=== PATIENT | male | born 1960 | race Caucasian/White ===

== ENCOUNTER 2020-05-09 23:10 | Inpatient (IN) | payer MEDICAID, SELFPAY ==
[~2020-05-09] VITALS: Ht 165.1 cm; Wt 77.1 kg
[2020-05-09 23:10] VITALS: BP 126/70
[2020-05-10 00:12] LABS: BASOPHILS # (AUTO) 0.1 K/uL (0.00-0.22); BASOPHILS % (AUTO) 0.5 % (0.0-2.0); HEMATOCRIT 39.6 % (36-52); HEMOGLOBIN 12.9 g/dL (12.0-18.0); LYMPHOCYTES # (AUTO) 2.8 K/uL (2.0-11.5); LYMPHOCYTES % (AUTO) 16.4 % (20.5-51.1); MEAN CORPUSCULAR HEMOGLOBIN 28 pg (27-31); MEAN CORPUSCULAR HGB CONC 33 g/dL (33-37); MEAN CORPUSCULAR VOLUME 86.6 fL (80-94); MONOCYTES # (AUTO) 0.9 K/uL (0.8-1.0); MONOCYTES % (AUTO) 5.5 % (1.7-9.3); NEUTROPHILS # (AUTO) 13.2 K/uL (1.8-7.7); NEUTROPHILS % (AUTO) 77.6 % (42.2-75.2); PLATELET COUNT (AUTO) 404 K/uL (140-450); RED BLOOD CELL COUNT(AUTO) 4.57 MIL/uL (4.20-6.10); RED CELL DISTRIBUTION WIDTH 13.7 % (11.6-13.7); WHITE BLOOD COUNT (AUTO) 16.9 K/uL (4.8-10.8)
[2020-05-10 00:28] LABS: ANION GAP 14.3 (8-16); CARBON DIOXIDE 25.8 mmol/L (21-32); CREATININE 1.1 mg/dL (0.6-1.3); POTASSIUM 4.1 mmol/L (3.5-5.1)
[2020-05-10 00:35] LABS: ALBUMIN 2.5 g/dL (3.4-5.0); TOTAL BILIRUBIN 0.3 mg/dL (0.0-1.0)
[2020-05-10] MEDS ORDERED: LEVOFLOXACIN 750 MG/D5W PREMIX 150 ML IV ONE (00:35)
[2020-05-10] MEDS ORDERED: MORPHINE SULFATE 2 MG/ML SYR IVP PRN (01:15)
[2020-05-10] MEDS ORDERED: ACETAMINOPHEN 325 MG TAB PO PRN (01:15)
[2020-05-10] MEDS ORDERED: HYDROcodone/APAP 5/325 MG 1 TAB TAB PO PRN (01:15)
[2020-05-10] MEDS ORDERED: ONDANSETRON 4 MG/2 ML VIAL IM/IVP PRN (01:15)
[2020-05-10] MEDS ORDERED: DOCUSATE SODIUM 100 MG GELCAP PO PRN (01:15)
[2020-05-10] MEDS ORDERED: ENOXAPARIN 40 MG/0.4 ML SYR SUBQ ONE ×2 (01:25→05:41)
[2020-05-10] MEDS ORDERED: ALBUTEROL HFA MDI 90 MCG/ACTUATION 8 GM INH PRN (08:07)
[2020-05-10] MEDS ORDERED: ENOXAPARIN 40 MG/0.4 ML SYR SUBQ SCH (08:22)
[2020-05-10] MEDS ORDERED: AZITHROMYCIN 250 MG TAB PO SCH (11:03)
[2020-05-10] MEDS ORDERED: cefTRIAXone 1,000 MG VIAL ONE (11:46)
[2020-05-10] MEDS ORDERED: DEXTROSE 50% 50 ML SYR IVP PRN (14:30)
[2020-05-10] MEDS: BLOOD GLUCOSE MONITORING 1 DEV DEV FS SCH ×2 (16:50→21:01)
[2020-05-10] MEDS: ENOXAPARIN 80 MG/0.8 ML SYR SUBQ SCH (18:48)
[2020-05-10 20:30] VITALS: BP 119/61
[2020-05-10] MEDS: INSULIN LISPRO SLIDING SCALE 100 UNITS/ML VIAL SUBQ PRN (21:02)
[2020-05-10 23:23] VITALS: BP 119/61
[2020-05-11] VITALS: BP 96/66
[2020-05-11 04:00] VITALS: BP 105/59
[2020-05-11] MEDS: ENOXAPARIN 80 MG/0.8 ML SYR SUBQ SCH ×2 (05:33→17:21)
[2020-05-11 06:16] LABS: BASOPHILS % (AUTO) 0.3 % (0.0-2.0); HEMATOCRIT 37.4 % (36-52); HEMOGLOBIN 12.4 g/dL (12.0-18.0); LYMPHOCYTES # (AUTO) 2.4 K/uL (2.0-11.5); LYMPHOCYTES % (AUTO) 18.5 % (20.5-51.1); MEAN CORPUSCULAR HEMOGLOBIN 29 pg (27-31); MEAN CORPUSCULAR HGB CONC 33 g/dL (33-37); MEAN CORPUSCULAR VOLUME 86.2 fL (80-94); MONOCYTES # (AUTO) 0.6 K/uL (0.8-1.0); MONOCYTES % (AUTO) 4.5 % (1.7-9.3); NEUTROPHILS % (AUTO) 76.7 % (42.2-75.2); PLATELET COUNT (AUTO) 409 K/uL (140-450); RED BLOOD CELL COUNT(AUTO) 4.34 MIL/uL (4.20-6.10); RED CELL DISTRIBUTION WIDTH 13.5 % (11.6-13.7)
[2020-05-11] MEDS: BLOOD GLUCOSE MONITORING 1 DEV DEV FS SCH ×4 (06:46→21:00)
[2020-05-11 07:06] LABS: ANION GAP 13.6 (8-16); CARBON DIOXIDE 25.8 mmol/L (21-32); CREATININE 0.9 mg/dL (0.6-1.3); POTASSIUM 4.4 mmol/L (3.5-5.1)
[2020-05-11 08:00] VITALS: BP 110/68
[2020-05-11] MEDS: AZITHROMYCIN 250 MG TAB PO SCH (09:01)
[2020-05-11] MEDS: PANTOPRAZOLE 40 MG INJ VIAL IVP SCH (09:02)
[2020-05-11 12:00] VITALS: BP 106/64
[2020-05-11 16:00] VITALS: BP 99/54
[2020-05-11] MEDS: INSULIN LISPRO SLIDING SCALE 100 UNITS/ML VIAL SUBQ PRN (17:20)
[2020-05-11 20:25] VITALS: BP 125/67
[2020-05-12] VITALS: BP 107/45
[2020-05-12] MEDS: INSULIN LISPRO SLIDING SCALE 100 UNITS/ML VIAL SUBQ PRN ×4 (00:08→20:50)
[2020-05-12] MEDS: guaiFENesin 20 MG/ML UDC PO PRN ×2 (01:46→23:13)
[2020-05-12] MEDS: ENOXAPARIN 80 MG/0.8 ML SYR SUBQ SCH ×2 (05:39→18:25)
[2020-05-12 05:40] VITALS: BP 99/55
[2020-05-12] MEDS: BLOOD GLUCOSE MONITORING 1 DEV DEV FS SCH ×4 (05:58→20:56)
[2020-05-12 06:01] LABS: BASOPHILS % (AUTO) 0.2 % (0.0-2.0); EOSINOPHILS % (AUTO) 0.3 % (0.0-4.0); HEMATOCRIT 37.5 % (36-52); HEMOGLOBIN 12.5 g/dL (12.0-18.0); LYMPHOCYTES # (AUTO) 2.4 K/uL (2.0-11.5); LYMPHOCYTES % (AUTO) 18.2 % (20.5-51.1); MEAN CORPUSCULAR HEMOGLOBIN 29 pg (27-31); MEAN CORPUSCULAR HGB CONC 33 g/dL (33-37); MEAN CORPUSCULAR VOLUME 86.1 fL (80-94); MONOCYTES # (AUTO) 0.5 K/uL (0.8-1.0); MONOCYTES % (AUTO) 4.1 % (1.7-9.3); NEUTROPHILS % (AUTO) 77.2 % (42.2-75.2); PLATELET COUNT (AUTO) 458 K/uL (140-450); RED BLOOD CELL COUNT(AUTO) 4.36 MIL/uL (4.20-6.10); RED CELL DISTRIBUTION WIDTH 12.8 % (11.6-13.7)
[2020-05-12 07:40] LABS: ALBUMIN 2.2 g/dL (3.4-5.0); ANION GAP 9.9 (8-16); CARBON DIOXIDE 26.6 mmol/L (21-32); POTASSIUM 4.5 mmol/L (3.5-5.1); TOTAL BILIRUBIN 0.4 mg/dL (0.0-1.0)
[2020-05-12 08:00] VITALS: BP 91/57
[2020-05-12] MEDS: AZITHROMYCIN 250 MG TAB PO SCH (10:00)
[2020-05-12] MEDS: PANTOPRAZOLE 40 MG INJ VIAL IVP SCH (10:00)
[2020-05-12 12:00] VITALS: BP 111/62
[2020-05-12 16:00] VITALS: BP 105/60
[2020-05-12 22:00] VITALS: BP 105/61
[2020-05-13] VITALS: BP 99/58
[2020-05-13] MEDS: guaiFENesin 20 MG/ML UDC PO PRN ×3 (04:45→20:17)
[2020-05-13] MEDS: ENOXAPARIN 80 MG/0.8 ML SYR SUBQ SCH ×2 (05:55→17:56)
[2020-05-13 06:39] VITALS: BP 105/60
[2020-05-13 06:55] LABS: BASOPHILS # (AUTO) 0.1 K/uL (0.00-0.22); BASOPHILS % (AUTO) 0.9 % (0.0-2.0); EOSINOPHILS # (AUTO) 0.1 K/uL (0-0.4); EOSINOPHILS % (AUTO) 0.9 % (0.0-4.0); HEMATOCRIT 37.2 % (36-52); HEMOGLOBIN 12.5 g/dL (12.0-18.0); LYMPHOCYTES # (AUTO) 2.6 K/uL (2.0-11.5); LYMPHOCYTES % (AUTO) 16.5 % (20.5-51.1); MEAN CORPUSCULAR HEMOGLOBIN 29 pg (27-31); MEAN CORPUSCULAR HGB CONC 34 g/dL (33-37); MONOCYTES # (AUTO) 0.6 K/uL (0.8-1.0); MONOCYTES % (AUTO) 3.6 % (1.7-9.3); NEUTROPHILS # (AUTO) 12.1 K/uL (1.8-7.7); NEUTROPHILS % (AUTO) 78.1 % (42.2-75.2); PLATELET COUNT (AUTO) 547 K/uL (140-450); RED BLOOD CELL COUNT(AUTO) 4.33 MIL/uL (4.20-6.10); RED CELL DISTRIBUTION WIDTH 13.2 % (11.6-13.7); WHITE BLOOD COUNT (AUTO) 15.6 K/uL (4.8-10.8)
[2020-05-13] MEDS: BLOOD GLUCOSE MONITORING 1 DEV DEV FS SCH ×4 (07:29→20:21)
[2020-05-13 07:43] LABS: ANION GAP 12.9 (8-16); CARBON DIOXIDE 27.3 mmol/L (21-32); CREATININE 0.9 mg/dL (0.6-1.3); POTASSIUM 4.2 mmol/L (3.5-5.1)
[2020-05-13 08:00] VITALS: BP 100/62
[2020-05-13] MEDS: AZITHROMYCIN 250 MG TAB PO SCH (08:14)
[2020-05-13] MEDS: PANTOPRAZOLE 40 MG INJ VIAL IVP SCH (08:15)
[2020-05-13 12:00] VITALS: BP 104/63
[2020-05-13] MEDS: INSULIN LISPRO SLIDING SCALE 100 UNITS/ML VIAL SUBQ PRN ×2 (12:16→20:29)
[2020-05-13 16:00] VITALS: BP 115/76
[2020-05-13 20:00] VITALS: BP 121/61
[2020-05-14] VITALS: BP 97/53
[2020-05-14] MEDS: guaiFENesin 20 MG/ML UDC PO PRN ×3 (02:30→16:27)
[2020-05-14 04:00] VITALS: BP 98/42
[2020-05-14] MEDS ORDERED: ENOXAPARIN 40 MG/0.4 ML SYR SUBQ ONE (05:29)
[2020-05-14] MEDS: ENOXAPARIN 80 MG/0.8 ML SYR SUBQ SCH ×2 (05:37→19:13)
[2020-05-14] MEDS: BLOOD GLUCOSE MONITORING 1 DEV DEV FS SCH ×4 (05:43→21:51)
[2020-05-14 08:00] VITALS: BP 106/73
[2020-05-14] MEDS: AZITHROMYCIN 250 MG TAB PO SCH (09:28)
[2020-05-14] MEDS: PANTOPRAZOLE 40 MG INJ VIAL IVP SCH (09:28)
[2020-05-14 12:00] VITALS: BP 110/68
[2020-05-14 12:26] LABS: CARBON DIOXIDE 25.2 mmol/L (21-32); CREATININE 0.9 mg/dL (0.6-1.3); POTASSIUM 4.2 mmol/L (3.5-5.1)
[2020-05-14 12:37] LABS: BASOPHILS # (AUTO) 0.1 K/uL (0.00-0.22); EOSINOPHILS # (AUTO) 0.2 K/uL (0-0.4); EOSINOPHILS % (AUTO) 1.7 % (0.0-4.0); HEMATOCRIT 37.5 % (36-52); HEMOGLOBIN 12.5 g/dL (12.0-18.0); LYMPHOCYTES # (AUTO) 2.1 K/uL (2.0-11.5); LYMPHOCYTES % (AUTO) 16.3 % (20.5-51.1); MEAN CORPUSCULAR HEMOGLOBIN 29 pg (27-31); MEAN CORPUSCULAR HGB CONC 33 g/dL (33-37); MEAN CORPUSCULAR VOLUME 86.3 fL (80-94); MONOCYTES # (AUTO) 0.5 K/uL (0.8-1.0); MONOCYTES % (AUTO) 4.2 % (1.7-9.3); NEUTROPHILS # (AUTO) 9.7 K/uL (1.8-7.7); NEUTROPHILS % (AUTO) 76.8 % (42.2-75.2); PLATELET COUNT (AUTO) 554 K/uL (140-450); RED BLOOD CELL COUNT(AUTO) 4.35 MIL/uL (4.20-6.10); RED CELL DISTRIBUTION WIDTH 13.1 % (11.6-13.7); WHITE BLOOD COUNT (AUTO) 12.6 K/uL (4.8-10.8)
[2020-05-14] MEDS ORDERED: FUROSEMIDE 20 MG/2 ML VIAL IVP SCH (13:00)
[2020-05-14 16:00] VITALS: BP 121/79
[2020-05-14 20:00] VITALS: BP 98/49
[2020-05-15] VITALS: BP 100/58
[2020-05-15] MEDS: INSULIN LISPRO SLIDING SCALE 100 UNITS/ML VIAL SUBQ PRN ×2 (00:10→21:22)
[2020-05-15] MEDS: guaiFENesin 20 MG/ML UDC PO PRN ×3 (00:16→21:21)
[2020-05-15 04:00] VITALS: BP 95/53
[2020-05-15] MEDS ORDERED: ENOXAPARIN 100 MG/ML SYR SUBQ ONE (05:44)
[2020-05-15] MEDS: ENOXAPARIN 80 MG/0.8 ML SYR SUBQ SCH ×2 (05:48→18:00)
[2020-05-15] MEDS: BLOOD GLUCOSE MONITORING 1 DEV DEV FS SCH ×4 (05:57→21:22)
[2020-05-15 07:11] LABS: BASOPHILS % (AUTO) 0.4 % (0.0-2.0); EOSINOPHILS # (AUTO) 0.1 K/uL (0-0.4); EOSINOPHILS % (AUTO) 0.7 % (0.0-4.0); HEMATOCRIT 37.9 % (36-52); HEMOGLOBIN 12.5 g/dL (12.0-18.0); LYMPHOCYTES # (AUTO) 2.7 K/uL (2.0-11.5); LYMPHOCYTES % (AUTO) 20.3 % (20.5-51.1); MEAN CORPUSCULAR HEMOGLOBIN 28 pg (27-31); MEAN CORPUSCULAR HGB CONC 33 g/dL (33-37); MEAN CORPUSCULAR VOLUME 86.3 fL (80-94); MONOCYTES # (AUTO) 0.8 K/uL (0.8-1.0); MONOCYTES % (AUTO) 5.9 % (1.7-9.3); NEUTROPHILS # (AUTO) 9.7 K/uL (1.8-7.7); NEUTROPHILS % (AUTO) 72.7 % (42.2-75.2); PLATELET COUNT (AUTO) 614 K/uL (140-450); RED BLOOD CELL COUNT(AUTO) 4.39 MIL/uL (4.20-6.10); RED CELL DISTRIBUTION WIDTH 13.1 % (11.6-13.7); WHITE BLOOD COUNT (AUTO) 13.3 K/uL (4.8-10.8)
[2020-05-15 07:33] LABS: ANION GAP 8.3 (8-16); CARBON DIOXIDE 28.8 mmol/L (21-32); CREATININE 0.9 mg/dL (0.6-1.3); POTASSIUM 4.1 mmol/L (3.5-5.1)
[2020-05-15 08:00] VITALS: BP 99/51
[2020-05-15] MEDS: PANTOPRAZOLE 40 MG INJ VIAL IVP SCH (09:48)
[2020-05-15 12:00] VITALS: BP 101/62
[2020-05-15] MEDS: PIPERACILLIN/TAZOBACTAM 3.375 GM in DEXTROSE 5% 50 ML IV SCH ×3 (12:31→23:36)
[2020-05-15 19:03] VITALS: BP 90/52
[2020-05-16] VITALS: BP 96/52
[2020-05-16 04:00] VITALS: BP 107/64
[2020-05-16] MEDS: ENOXAPARIN 80 MG/0.8 ML SYR SUBQ SCH ×2 (05:48→17:09)
[2020-05-16] MEDS: PIPERACILLIN/TAZOBACTAM 3.375 GM in DEXTROSE 5% 50 ML IV SCH ×3 (05:51→17:09)
[2020-05-16] MEDS: BLOOD GLUCOSE MONITORING 1 DEV DEV FS SCH ×4 (05:57→20:54)
[2020-05-16 06:41] LABS: ANION GAP 8.9 (8-16); CARBON DIOXIDE 30.3 mmol/L (21-32); CREATININE 0.9 mg/dL (0.6-1.3); POTASSIUM 4.2 mmol/L (3.5-5.1)
[2020-05-16 07:01] LABS: BASOPHILS % (AUTO) 0.4 % (0.0-2.0); EOSINOPHILS # (AUTO) 0.1 K/uL (0-0.4); EOSINOPHILS % (AUTO) 0.5 % (0.0-4.0); HEMATOCRIT 36.9 % (36-52); HEMOGLOBIN 12.2 g/dL (12.0-18.0); LYMPHOCYTES # (AUTO) 2.5 K/uL (2.0-11.5); LYMPHOCYTES % (AUTO) 18.9 % (20.5-51.1); MEAN CORPUSCULAR HEMOGLOBIN 29 pg (27-31); MEAN CORPUSCULAR HGB CONC 33 g/dL (33-37); MEAN CORPUSCULAR VOLUME 86.7 fL (80-94); MONOCYTES # (AUTO) 1.1 K/uL (0.8-1.0); MONOCYTES % (AUTO) 8.8 % (1.7-9.3); NEUTROPHILS # (AUTO) 9.4 K/uL (1.8-7.7); NEUTROPHILS % (AUTO) 71.4 % (42.2-75.2); PLATELET COUNT (AUTO) 612 K/uL (140-450); RED BLOOD CELL COUNT(AUTO) 4.25 MIL/uL (4.20-6.10); RED CELL DISTRIBUTION WIDTH 13.3 % (11.6-13.7); WHITE BLOOD COUNT (AUTO) 13.1 K/uL (4.8-10.8)
[2020-05-16 08:00] VITALS: BP 107/64
[2020-05-16] MEDS: PANTOPRAZOLE 40 MG INJ VIAL IVP SCH (09:29)
[2020-05-16 12:00] VITALS: BP 99/55
[2020-05-16] MEDS: INSULIN LISPRO SLIDING SCALE 100 UNITS/ML VIAL SUBQ PRN ×3 (13:01→20:55)
[2020-05-16] MEDS ORDERED: FUROSEMIDE 20 MG/2 ML VIAL IVP SCH (13:10)
[2020-05-16 16:00] VITALS: BP 95/59
[2020-05-16 20:00] VITALS: BP 94/58
[2020-05-17] MEDS: PIPERACILLIN/TAZOBACTAM 3.375 GM in DEXTROSE 5% 50 ML IV SCH ×4 (00:17→17:55)
[2020-05-17 04:00] VITALS: BP 94/58
[2020-05-17] MEDS: ENOXAPARIN 80 MG/0.8 ML SYR SUBQ SCH ×2 (06:00→17:57)
[2020-05-17] MEDS: BLOOD GLUCOSE MONITORING 1 DEV DEV FS SCH ×4 (06:34→21:32)
[2020-05-17] MEDS: INSULIN LISPRO SLIDING SCALE 100 UNITS/ML VIAL SUBQ PRN ×3 (06:35→21:32)
[2020-05-17 08:00] VITALS: BP 90/59
[2020-05-17] MEDS: PANTOPRAZOLE 40 MG INJ VIAL IVP SCH (08:57)
[2020-05-17 09:28] LABS: HEMATOCRIT 34.8 % (36-52); HEMOGLOBIN 11.5 g/dL (12.0-18.0); MEAN CORPUSCULAR HEMOGLOBIN 29 pg (27-31); MEAN CORPUSCULAR HGB CONC 33 g/dL (33-37); MEAN CORPUSCULAR VOLUME 86.2 fL (80-94); PLATELET COUNT (AUTO) 592 K/uL (140-450); RED BLOOD CELL COUNT(AUTO) 4.04 MIL/uL (4.20-6.10); WHITE BLOOD COUNT (AUTO) 13.5 K/uL (4.8-10.8)
[2020-05-17 09:29] LABS: CARBON DIOXIDE 32.5 mmol/L (21-32); POTASSIUM 3.5 mmol/L (3.5-5.1)
[2020-05-17 16:00] VITALS: BP 95/58
[2020-05-17 16:35] LABS: LYMPHOCYTES % (MANUAL) 18 % (20-46); METAMYELOCYTES % 1 % (0-0); MONOCYTES % (MANUAL) 10 % (5-12); MYELOCYTES % 1 % (0-0)
[2020-05-17 20:00] VITALS: BP 95/50
[2020-05-18] MEDS: PIPERACILLIN/TAZOBACTAM 3.375 GM in DEXTROSE 5% 50 ML IV SCH ×5 (00:40→23:54)
[2020-05-18 04:00] VITALS: BP 97/53
[2020-05-18] MEDS: ENOXAPARIN 80 MG/0.8 ML SYR SUBQ SCH ×2 (05:33→17:32)
[2020-05-18] MEDS: BLOOD GLUCOSE MONITORING 1 DEV DEV FS SCH ×4 (06:58→21:34)
[2020-05-18] MEDS: INSULIN LISPRO SLIDING SCALE 100 UNITS/ML VIAL SUBQ PRN ×2 (06:59→21:35)
[2020-05-18] MEDS: PANTOPRAZOLE 40 MG INJ VIAL IVP SCH (08:24)
[2020-05-18 16:00] VITALS: BP 103/65
[2020-05-18 20:00] VITALS: BP 107/58
[2020-05-19 04:00] VITALS: BP 117/67
[2020-05-19] MEDS: PIPERACILLIN/TAZOBACTAM 3.375 GM in DEXTROSE 5% 50 ML IV SCH ×3 (05:54→17:09)
[2020-05-19] MEDS: ENOXAPARIN 80 MG/0.8 ML SYR SUBQ SCH ×2 (05:58→17:50)
[2020-05-19] MEDS: BLOOD GLUCOSE MONITORING 1 DEV DEV FS SCH ×4 (06:46→21:13)
[2020-05-19 08:00] VITALS: BP 109/68
[2020-05-19] MEDS: PANTOPRAZOLE 40 MG INJ VIAL IVP SCH (08:31)
[2020-05-19] MEDS: INSULIN LISPRO SLIDING SCALE 100 UNITS/ML VIAL SUBQ PRN ×2 (12:51→21:14)
[2020-05-19 16:00] VITALS: BP 104/65
[2020-05-19 20:00] VITALS: BP 106/66
[2020-05-20] MEDS: PIPERACILLIN/TAZOBACTAM 3.375 GM in DEXTROSE 5% 50 ML IV SCH ×5 (01:00→23:56)
[2020-05-20 04:00] VITALS: BP 108/74
[2020-05-20] MEDS: ENOXAPARIN 80 MG/0.8 ML SYR SUBQ SCH ×2 (05:49→18:27)
[2020-05-20] MEDS: BLOOD GLUCOSE MONITORING 1 DEV DEV FS SCH ×4 (06:24→21:26)
[2020-05-20 08:36] LABS: BASOPHILS # (AUTO) 0.1 K/uL (0.00-0.22); BASOPHILS % (AUTO) 0.6 % (0.0-2.0); EOSINOPHILS # (AUTO) 0.1 K/uL (0-0.4); EOSINOPHILS % (AUTO) 0.9 % (0.0-4.0); HEMATOCRIT 35.8 % (36-52); HEMOGLOBIN 11.8 g/dL (12.0-18.0); LYMPHOCYTES # (AUTO) 3.6 K/uL (2.0-11.5); LYMPHOCYTES % (AUTO) 27.8 % (20.5-51.1); MEAN CORPUSCULAR HEMOGLOBIN 28 pg (27-31); MEAN CORPUSCULAR HGB CONC 33 g/dL (33-37); MEAN CORPUSCULAR VOLUME 86.6 fL (80-94); MONOCYTES # (AUTO) 1.5 K/uL (0.8-1.0); MONOCYTES % (AUTO) 11.8 % (1.7-9.3); NEUTROPHILS # (AUTO) 7.6 K/uL (1.8-7.7); NEUTROPHILS % (AUTO) 58.9 % (42.2-75.2); PLATELET COUNT (AUTO) 524 K/uL (140-450); RED BLOOD CELL COUNT(AUTO) 4.14 MIL/uL (4.20-6.10); RED CELL DISTRIBUTION WIDTH 13.3 % (11.6-13.7); WHITE BLOOD COUNT (AUTO) 12.8 K/uL (4.8-10.8)
[2020-05-20 09:28] LABS: ALBUMIN 2.4 g/dL (3.4-5.0); ANION GAP 9.1 (8-16); CREATININE 0.9 mg/dL (0.6-1.3); MAGNESIUM 2.1 mg/dL (1.8-2.4); PHOSPHORUS 4.3 mg/dL (2.5-4.9); POTASSIUM 4.1 mmol/L (3.5-5.1); TOTAL BILIRUBIN 0.2 mg/dL (0.0-1.0)
[2020-05-20] MEDS: PANTOPRAZOLE 40 MG INJ VIAL IVP SCH (10:04)
[2020-05-20] MEDS: INSULIN LISPRO SLIDING SCALE 100 UNITS/ML VIAL SUBQ PRN ×3 (11:32→21:27)
[2020-05-20 16:00] VITALS: BP 130/46
[2020-05-20 20:00] VITALS: BP 111/75
[2020-05-21 04:00] VITALS: BP 108/69
[2020-05-21] MEDS: PIPERACILLIN/TAZOBACTAM 3.375 GM in DEXTROSE 5% 50 ML IV SCH ×3 (05:48→18:22)
[2020-05-21] MEDS: ENOXAPARIN 80 MG/0.8 ML SYR SUBQ SCH ×2 (05:56→18:24)
[2020-05-21] MEDS: BLOOD GLUCOSE MONITORING 1 DEV DEV FS SCH ×4 (05:58→20:42)
[2020-05-21 06:50] LABS: BASOPHILS # (AUTO) 0.1 K/uL (0.00-0.22); BASOPHILS % (AUTO) 0.6 % (0.0-2.0); EOSINOPHILS # (AUTO) 0.1 K/uL (0-0.4); EOSINOPHILS % (AUTO) 0.5 % (0.0-4.0); HEMOGLOBIN 12.5 g/dL (12.0-18.0); LYMPHOCYTES # (AUTO) 4.4 K/uL (2.0-11.5); LYMPHOCYTES % (AUTO) 30.3 % (20.5-51.1); MEAN CORPUSCULAR HEMOGLOBIN 29 pg (27-31); MEAN CORPUSCULAR HGB CONC 33 g/dL (33-37); MEAN CORPUSCULAR VOLUME 86.6 fL (80-94); MONOCYTES % (AUTO) 7.2 % (1.7-9.3); NEUTROPHILS % (AUTO) 61.4 % (42.2-75.2); PLATELET COUNT (AUTO) 547 K/uL (140-450); RED BLOOD CELL COUNT(AUTO) 4.38 MIL/uL (4.20-6.10); RED CELL DISTRIBUTION WIDTH 13.4 % (11.6-13.7); WHITE BLOOD COUNT (AUTO) 14.6 K/uL (4.8-10.8)
[2020-05-21 07:26] LABS: ANION GAP 12.5 (8-16); CARBON DIOXIDE 28.2 mmol/L (21-32); CREATININE 1.1 mg/dL (0.6-1.3); POTASSIUM 3.7 mmol/L (3.5-5.1)
[2020-05-21 07:51] LABS: PHOSPHORUS 4.4 mg/dL (2.5-4.9)
[2020-05-21] MEDS: PANTOPRAZOLE 40 MG INJ VIAL IVP SCH (08:45)
[2020-05-21 16:00] VITALS: BP 97/60
[2020-05-21 20:00] VITALS: BP 100/58
[2020-05-21] MEDS: INSULIN LISPRO SLIDING SCALE 100 UNITS/ML VIAL SUBQ PRN (20:42)
[2020-05-22] MEDS: PIPERACILLIN/TAZOBACTAM 3.375 GM in DEXTROSE 5% 50 ML IV SCH ×4 (00:08→17:28)
[2020-05-22 04:00] VITALS: BP 105/66
[2020-05-22] MEDS: ENOXAPARIN 80 MG/0.8 ML SYR SUBQ SCH ×2 (05:29→17:32)
[2020-05-22] MEDS: BLOOD GLUCOSE MONITORING 1 DEV DEV FS SCH ×4 (06:36→20:03)
[2020-05-22 06:54] LABS: BASOPHILS # (AUTO) 0.1 K/uL (0.00-0.22); EOSINOPHILS # (AUTO) 0.3 K/uL (0-0.4); EOSINOPHILS % (AUTO) 2.5 % (0.0-4.0); HEMATOCRIT 36.4 % (36-52); HEMOGLOBIN 12.1 g/dL (12.0-18.0); LYMPHOCYTES % (AUTO) 39.4 % (20.5-51.1); MEAN CORPUSCULAR HEMOGLOBIN 29 pg (27-31); MEAN CORPUSCULAR HGB CONC 33 g/dL (33-37); MEAN CORPUSCULAR VOLUME 86.6 fL (80-94); MONOCYTES # (AUTO) 1.2 K/uL (0.8-1.0); MONOCYTES % (AUTO) 9.8 % (1.7-9.3); NEUTROPHILS # (AUTO) 5.9 K/uL (1.8-7.7); NEUTROPHILS % (AUTO) 47.3 % (42.2-75.2); PLATELET COUNT (AUTO) 451 K/uL (140-450); RED BLOOD CELL COUNT(AUTO) 4.21 MIL/uL (4.20-6.10); RED CELL DISTRIBUTION WIDTH 13.3 % (11.6-13.7); WHITE BLOOD COUNT (AUTO) 12.6 K/uL (4.8-10.8)
[2020-05-22 07:09] LABS: ANION GAP 10.2 (8-16); CARBON DIOXIDE 29.7 mmol/L (21-32); CREATININE 1.1 mg/dL (0.6-1.3); POTASSIUM 3.9 mmol/L (3.5-5.1)
[2020-05-22] MEDS: PANTOPRAZOLE 40 MG INJ VIAL IVP SCH (08:10)
[2020-05-22] MEDS ORDERED: ASPI-1205 PO (14:54)
[2020-05-22] MEDS ORDERED: METF500T PO (14:54)
[2020-05-22] MEDS ORDERED: AMOX-999 PO (14:54)
[2020-05-22 16:00] VITALS: BP 101/55
[2020-05-22 20:00] VITALS: BP 103/62
[2020-05-23] MEDS: PIPERACILLIN/TAZOBACTAM 3.375 GM in DEXTROSE 5% 50 ML IV SCH (00:12)
[2020-05-23 04:00] VITALS: BP 98/56
[2020-05-23] MEDS: ENOXAPARIN 80 MG/0.8 ML SYR SUBQ SCH (05:52)
[2020-05-23] MEDS: BLOOD GLUCOSE MONITORING 1 DEV DEV FS SCH (07:30)
[2020-05-23 08:00] VITALS: BP 108/62
[2020-05-23] MEDS: PANTOPRAZOLE 40 MG INJ VIAL IVP SCH (09:10)
== END 2020-05-23 12:06 | disposition home or self-care (01) | DRG 720 ==
LOC: MED 23:10 → MTU 05-10 01:15 → MMU 05-10 16:47 → MTU 05-16 15:24
PROVIDERS: ADMIT Hospitalist; ATTEND Hospitalist
DX: A41.89 Other specified sepsis (principal); J18.9 Pneumonia, unspecified organism; E43 Unspecified severe protein-calorie malnutrition; J96.01 Acute respiratory failure with hypoxia; E87.1 Hypo-osmolality and hyponatremia; E78.5 Hyperlipidemia, unspecified; Z68.28 Body mass index [BMI] 28.0-28.9, adult; R74.01 Elevation of levels of liver transaminase levels; R73.9 Hyperglycemia, unspecified
CPT/HCPCS: 36415; 71045; 71275; 80048; 80053; 82550; 82948; 83605; 83615; 83735; 84100; 84484; 85025; 85379; 85610; 85651; 85730; 86140; 87040; 87081; 87804; 93005; 94664; 99285; C9113; J0696; J1650; J1940; J1956; J2543; J3535; J7060; Q9967; U0003

== ENCOUNTER 2020-08-19 16:47 | Emergency (ER) | payer MEDICAID, SELFPAY ==
[~2020-08-19] VITALS: Ht 167.6 cm; Wt 77.1 kg
[~2020-08-19 16:47] MED LIST: AMOX-999 PO; ASPI-1205 PO; METF500T PO
[2020-08-19 16:50] VITALS: BP 109/82
--- NOTE | 2020-08-19 17:04 | NUR ---
C/O CHEST PAIN AFTER COUGHING X LAST WEEK. R 24, O2SAT 95% AT THIS TIME. COVID TESTED NEG 05/10/21 [facility]: PNEUMONIA IN MAY 2020
--- NOTE | 2020-08-19 17:13 | NUR ---
COVID WAQAR SWAB COLLECTED.
[2020-08-19 17:30] LABS: BASOPHILS # (AUTO) 0.1 K/uL (0.00-0.22); BASOPHILS % (AUTO) 1.2 % (0.0-2.0); EOSINOPHILS # (AUTO) 0.2 K/uL (0-0.4); EOSINOPHILS % (AUTO) 1.5 % (0.0-4.0); HEMOGLOBIN 14.5 g/dL (12.0-18.0); LYMPHOCYTES # (AUTO) 6.1 K/uL (2.0-11.5); LYMPHOCYTES % (AUTO) 59.2 % (20.5-51.1); MEAN CORPUSCULAR HEMOGLOBIN 30 pg (27-31); MEAN CORPUSCULAR HGB CONC 34 g/dL (33-37); MEAN CORPUSCULAR VOLUME 87.6 fL (80-94); MONOCYTES # (AUTO) 1.2 K/uL (0.8-1.0); MONOCYTES % (AUTO) 11.9 % (1.7-9.3); NEUTROPHILS # (AUTO) 2.7 K/uL (1.8-7.7); NEUTROPHILS % (AUTO) 26.2 % (42.2-75.2); PLATELET COUNT (AUTO) 332 K/uL (140-450); RED CELL DISTRIBUTION WIDTH 14.2 % (11.6-13.7); WHITE BLOOD COUNT (AUTO) 10.3 K/uL (4.8-10.8)
[2020-08-19 18:08] LABS: ALBUMIN 3.9 g/dL (3.4-5.0); ANION GAP 12.5 (8-16); CARBON DIOXIDE 26.7 mmol/L (21-32); POTASSIUM 4.2 mmol/L (3.5-5.1); TOTAL BILIRUBIN 0.4 mg/dL (0.0-1.0)
--- NOTE | 2020-08-19 19:09 | NUR ---
Pt report given to GILLES SEBASTIAN. Transfer of care at this time.
[2020-08-19] MEDS ORDERED: ACET-8386 PO (19:17)
[2020-08-19 19:32] VITALS: BP 112/85
--- NOTE | 2020-08-19 19:32 | NUR ---
Patient discharged with v/s stable. Written and verbal after care instructions given and explained. Patient alert, oriented and verbalized understanding of instructions. Ambulatory with steady gait. All questions addressed prior to discharge. ID band removed. Patient advised to follow up with PMD. Rx of hydrocodone/acetaminophen given. Patient educated on indication of medication including possible reaction and side effects. Opportunity to ask questions provided and answered.
== END 2020-08-19 19:32 | disposition home or self-care (01) ==
LOC: MED 16:47
DX: R05 Cough (principal); Z20.822 Contact with and (suspected) exposure to COVID-19; E11.9 Type 2 diabetes mellitus without complications; E78.5 Hyperlipidemia, unspecified; Z79.84 Long term (current) use of oral hypoglycemic drugs; Z79.899 Other long term (current) drug therapy; Z79.82 Long term (current) use of aspirin
CPT/HCPCS: 36415; 71045; 80053; 83880; 84484; 85025; 93005; 99285